=== PATIENT | male | born 1990 | race Caucasian/White ===

== ENCOUNTER 2017-04-01 08:02 | Emergency (ER) | payer BC ==
[2017-04-01 08:19] VITALS: BP 127/68
[2017-04-01] MEDS ORDERED: predniSONE TAB* 20 MG PO ONE (08:44)
--- NOTE | 2017-04-01 08:55 | UC ---
Choco Maravilla Benjamin, scribed for Francisco Sierra MD on 04/01/17 at 0844 . Skin Complaint HPI - HPI Summary HPI Summary: 26yo male who was bite by something 2 nights ago and yesterday started to have red rash spots on his bilateral arms and hands. Pt was also told by his co- workers that his face is swollen. Pt admits his forehead and face are slightly swollen. Pt took Benadryl yesterday. Denies lips or tongue swelling. - History of Current Complaint Chief Complaint: UCSkin Time Seen by Provider: 04/01/17 08:31 Stated Complaint: BUG BITE,FACIAL SWELLING Hx Obtained From: Patient Onset/Duration: Sudden Onset, Lasting Days - 1 day, Still Present Skin Exposure Onset/Duration: Days Ago - 2 days ago Timing: Constant Onset Severity: Mild Current Severity: Mild Pain Intensity: 0 Pain Scale Used: 0-10 Numeric Location: Face - swelling, Ear (Right) - rash spots, Hand (Left) - rash spots Aggravating: Nothing Alleviating: Nothing Associated Signs & Symptoms: Positive: Rash. Negative: Difficulty Breathing, Fever, Throat Tightening - Allergy/Home Medications Allergies/Adverse Reactions: Allergies Allergy/AdvReac Type Severity Reaction Status Date / Time Penicillins Allergy Unknown Unknown Verified 10/29/16 20:49 Reaction Details Home Medications: Home Medications diPHENhydraMINE PO* [Benadryl PO 25 MG TAB*] 50 mg PO Q6H PRN 04/01/17 [History Confirmed 04/01/17] Review of Systems Constitutional: Negative Skin: Rash, Other - swollen face and forehead Eyes: Negative ENT: Negative Respiratory: Negative Cardiovascular: Negative Gastrointestinal: Negative Genitourinary: Negative Motor: Negative Neurovascular: Negative Musculoskeletal: Negative Neurological: Negative Psychological: Negative All Other Systems Reviewed And Are Negative: Yes PMH/Surg Hx/FS Hx/Imm Hx - Surgical History Surgical History: Yes Surgery Procedure, Year, and Place: TONSILLECTOMY, MOLE REMOVED FROM BACK - Family History Known Family History: Positive: Cardiac Disease - Social History Alcohol Use: Weekly Substance Use Type: None Smoking Status (MU): Never Smoked Tobacco Physical Exam Triage Information Reviewed: Yes Appearance: Well-Appearing, No Pain Distress Vital Signs: Initial Vital Signs Temp 97.4 F 04/01/17 08:13 Pulse 63 04/01/17 08:13 Resp 18 04/01/17 08:13 BP 127/68 04/01/17 08:13 Pulse Ox 100 04/01/17 08:13 Vital Signs Reviewed: Yes Eyes: Positive: Conjunctiva Clear ENT Exam: Other - There is very slight facial swelling without erythema to the maxillary skin. Eyelids appear normal without swelling. ENT: Positive: Pharynx normal, Other: - normal tongue, normal throat, no stridor , no drooling.. Negative: Pharyngeal erythema, Trismus, Muffled/hoarse voice Respiratory: Positive: Chest non-tender, Lungs clear, Normal breath sounds, No respiratory distress, No accessory muscle use Cardiovascular: Positive: RRR, No Murmur Abdomen Description: Positive: Nontender Musculoskeletal: Positive: Strength Intact, ROM Intact Neurological Exam: Normal Psychological Exam: Normal Skin: Positive: Other - urticaria on his arms, no obvious bites, and no celulitis Course/Dx - Course Course Of Treatment: 26 yr old male with allergic reaction, hives, possibly to bug bites. He can continue his benadryl every six hours. Adding prednisone. He otherwise appears comfortable, and in no distress. - Differential Diagnoses - Skin Complaint Differential Diagnoses: Allergic Reaction - Diagnoses Provider Diagnoses: urticaria Discharge - Discharge Plan Condition: Good Disposition: HOME Prescriptions: predniSONE TAB* [Deltasone TAB*] 40 mg PO DAILY #6 tab Patient Education Materials: Urticaria (ED) Referrals: No Primary Care Phys,NOPCP [Primary Care Provider] - [facility] [place] [facility] [Outside] The documentation as recorded by the Choco salguero Benjamin accurately reflects the service I personally performed and the decisions made by me, Francisco Sierra MD.
== END 2017-04-01 08:58 | disposition home or self-care (01) ==
LOC: UCEAST 08:02
DX: L50.0 Allergic urticaria (principal); Z88.0 Allergy status to penicillin
CPT/HCPCS: 99212; G0463; J7512

== ENCOUNTER 2017-04-01 21:47 | Emergency (ER) | payer BC ==
[2017-04-01 21:58] VITALS: BP 126/71
[2017-04-01] MEDS ORDERED: predniSONE TAB* 20 MG PO ONE (22:11)
[2017-04-01] MEDS ORDERED: diPHENhydraMINE PO* 50 MG PO ONE (22:12)
[2017-04-01] MEDS ORDERED: Famotidine TAB* 20 MG PO ONE (22:13)
--- NOTE | 2017-04-01 22:25 | UC ---
Skin Complaint HPI - HPI Summary HPI Summary: triage note "ONSET THIS MORNING OF RED AREA LEFT WRIST. PT SEEN IN [facility] THIS MORNING, DX'D WITH UTICARIA, PO PREDNISONE GIVEN 60mgs, RX FOR SAME ALSO GIVEN FOR PT START 04/03/17. PT HAS HAD HX OF ALLERGY TO BEE STINGS IN THE PAST BUT SAYS HE HAS NOT REACTED TO BEE STINGS AN ADULT. PT STATES SITES ON LEFT HAND ARE BEE STINGS FROM 03/29/17. Bite happened 2 nights ago and redness started yesterday. Hemlock note from this AM reviewed. He has not had benadrylo since early this morning. He has developed some more hives on arms and torso. Denies swelling of lips, tongue throat. no scratchy throat, no difficulty swallowing or talking or SOB or wheezing. Here with his Kristin. - History of Current Complaint Chief Complaint: UCSkin Time Seen by Provider: 04/01/17 21:55 Stated Complaint: INSECT BITE/QUINTERO - Allergy/Home Medications Allergies/Adverse Reactions: Allergies Allergy/AdvReac Type Severity Reaction Status Date / Time Penicillins Allergy Unknown Unknown Verified 04/01/17 21:58 Reaction Details Review of Systems Constitutional: Negative Skin: Other - hives, itchy Eyes: Negative ENT: Negative Respiratory: Negative Cardiovascular: Negative Gastrointestinal: Negative Genitourinary: Negative Motor: Negative Neurovascular: Negative Musculoskeletal: Negative Neurological: Negative Psychological: Negative All Other Systems Reviewed And Are Negative: Yes PMH/Surg Hx/FS Hx/Imm Hx Previously Healthy: Yes - Surgical History Surgical History: Yes Surgery Procedure, Year, and Place: TONSILLECTOMY, MOLE REMOVED FROM BACK AND AXILLA. - Family History Known Family History: Positive: Cardiac Disease - Social History Alcohol Use: Weekly Substance Use Type: None Smoking Status (MU): Never Smoked Tobacco Physical Exam Triage Information Reviewed: Yes Appearance: Well-Appearing, No Pain Distress, Well-Nourished Vital Signs: Initial Vital Signs Temp 98.6 F 04/01/17 21:50 Pulse 66 04/01/17 21:50 Resp 16 04/01/17 21:50 BP 126/71 04/01/17 21:50 Pulse Ox 97 04/01/17 21:50 Vital Signs Reviewed: Yes Eye Exam: Normal ENT Exam: Normal ENT: Positive: Hearing grossly normal, Pharynx normal, TMs normal, Other: - lips , tongue and uvula not swollen. no stridor.. Negative: Pharyngeal erythema, Nasal congestion, Muffled/hoarse voice Dental Exam: Normal Neck exam: Normal Neck: Positive: Supple, Nontender, No Lymphadenopathy Respiratory Exam: Normal Respiratory: Positive: Chest non-tender, Lungs clear, Normal breath sounds, No respiratory distress, No accessory muscle use. Negative: Crackles, Rhonchi, Stridor, Wheezing Cardiovascular Exam: Normal Cardiovascular: Positive: RRR, No Murmur, Pulses Normal, Brisk Capillary Refill Abdominal Exam: Normal Abdomen Description: Positive: Nontender, Soft Bowel Sounds: Positive: Present Musculoskeletal Exam: Normal Neurological Exam: Normal Psychological Exam: Normal Skin: Positive: Other - small hives (< quarter sized), mostly dime sized, scatterd, not many on arms, right torso, face, left shoulder, popliteal fossas. blanching. Course/Dx - Course Course Of Treatment: We discusse risks of prednisone including but not limited to anxiety, agitation, insomnia, GI upset, elevated blood pressures and blood sugar readings, adrenal crisis and avascular necrosis of the hip. He is in no acute distress. Dose more prednisone now with famotidine and benadryl. They are both very agreeable with this plan. I advised that they go to ER if sx worsen. - Differential Diagnoses - Skin Complaint Differential Diagnoses: Cellulitis, Contact Dermatitis, Urticaria - Diagnoses Provider Diagnoses: urticaria Discharge - Discharge Plan Condition: Stable Disposition: HOME Prescriptions: Epinephrine [Epipen 2-Dipesh] 0.3 mg IM ONCE PRN #1 inj PRN Reason: allergic reaction Patient Education Materials: Urticaria (ED) Referrals: No Primary Care Phys,NOPCP [Primary Care Provider] - Additional Instructions: A list of primary care doctors has been given to you to follow up with tomorrow. If you develop any symptoms of throat or tongue swelling, scratchy throat, wheezing, shortness of breath, diarrhea or vomiting, you should call 911 and go to ER. A epi-pen prescription has been written for you to use in case of allergic reaction - if you use it, you shuld immediately call [address] while taking benadryl. You have a prednisone taper to continue tomorrow. For the next 14 days you should take OTC cetirizine 10mgs 1 each day and zantac 150mgs every day (do not drink alcohol while you take this). You should get a referral to an mexican food maker hand to clarify your allergies.
== END 2017-04-01 22:40 | disposition home or self-care (01) ==
LOC: UCCORT 21:47
DX: L50.9 Urticaria, unspecified (principal); Z88.0 Allergy status to penicillin
CPT/HCPCS: 99212; A9270-GY; G0463; J7512

== ENCOUNTER 2017-10-11 12:30 | Emergency (ER) | payer BC ==
[2017-10-11 14:14] VITALS: BP 118/60
[2017-10-11] MEDS ORDERED: Tetan/Diph/Pertus SYR(Tdap)* 0.5 ML SYR(BOOSTRIX) use SYR IM ONE (14:58)
--- NOTE | 2017-10-11 15:09 | UC ---
Lower Extremity/Ankle HPI - HPI Summary HPI Summary: Yesterday early in the day pt stepped on an old bright nail with a bare foot indoors, states it went all the way in (3/4 inch) and he pulled back out. Today has soreness and swelling, is able to bear weight. No pus or redness. Last tetanus 2010. - History of Current Complaint Chief Complaint: UCTrauma Stated Complaint: RIGHT FOOT PAIN Time Seen by Provider: 10/11/17 14:57 Hx Obtained From: Patient Onset/Duration: Sudden Onset Severity Initially: Moderate Severity Currently: Mild Aggravating Factor(s): Standing, Ambulation Alleviating Factor(s): Rest Able to Bear Weight: Yes - Allergies/Home Medications Allergies/Adverse Reactions: Allergies Allergy/AdvReac Type Severity Reaction Status Date / Time Penicillins Allergy Unknown Unknown Verified 10/11/17 14:14 Reaction Details PMH/Surg Hx/FS Hx/Imm Hx Previously Healthy: Yes - Surgical History Surgical History: Yes Surgery Procedure, Year, and Place: TONSILLECTOMY, MOLE REMOVED FROM BACK AND AXILLA. - Family History Known Family History: Positive: Cardiac Disease - Social History Occupation: Employed Full-time - construction Alcohol Use: Weekly Substance Use Type: None Smoking Status (MU): Never Smoked Tobacco - Immunization History Most Recent Influenza Vaccination: NOT CURRENT Review of Systems Constitutional: Negative Skin: Other - PW sole of R foot Eyes: Negative ENT: Negative Respiratory: Negative Cardiovascular: Negative Gastrointestinal: Negative Genitourinary: Negative Motor: Negative Neurovascular: Negative Musculoskeletal: Negative Neurological: Negative Psychological: Negative Is Patient Immunocompromised?: No All Other Systems Reviewed And Are Negative: Yes Physical Exam Triage Information Reviewed: Yes Appearance: Well-Appearing, No Pain Distress Vital Signs: Initial Vital Signs Temp 97.9 F 10/11/17 14:11 Pulse 72 10/11/17 14:11 Resp 18 10/11/17 14:11 BP 118/60 10/11/17 14:11 Pulse Ox 100 10/11/17 14:11 Vital Signs Reviewed: Yes Eye Exam: Normal Eyes: Positive: Conjunctiva Clear ENT Exam: Normal ENT: Positive: Normal ENT inspection, Hearing grossly normal, Pharynx normal, TM dull Dental Exam: Normal Neck exam: Normal Respiratory Exam: Normal Respiratory: Positive: Chest non-tender, Lungs clear, Normal breath sounds, No respiratory distress, No accessory muscle use Cardiovascular Exam: Normal Cardiovascular: Positive: RRR, No Murmur Musculoskeletal Exam: Normal Musculoskeletal: Positive: Strength Intact, ROM Intact Neurological Exam: Normal Psychological Exam: Normal Skin Exam: Other - PW on forefoot sole of R foot, no erythema on top or bottom of foot, no drainage, minimal tenderness. Lower Extremity Course/Dx - Differential Dx/Diagnosis Provider Diagnoses: PW with nail into R foot Discharge - Discharge Plan Condition: Stable Disposition: HOME Prescriptions: Ciprofloxacin TAB* [Cipro 500 MG TAB*] 500 mg PO BID #10 tab Patient Education Materials: Puncture Wound (ED) Referrals: No Primary Care Phys,NOPCP [Primary Care Provider] - Additional Instructions: As long as your pain and swelling gradually resolve over the week, no further care should be necessary. If you have significant pain or worsening in the coming days, I recommend you go to the hospital emergency room for further care.
== END 2017-10-11 15:25 | disposition home or self-care (01) ==
LOC: UCCORT 12:30
DX: S91.331A Puncture wound without foreign body, right foot, initial encounter (principal); W45.0XXA Nail entering through skin, initial encounter; Y93.9 Activity, unspecified; Y92.9 Unspecified place or not applicable; Z23 Encounter for immunization; Z88.0 Allergy status to penicillin; Z90.89 Acquired absence of other organs
CPT/HCPCS: 90471; 90715; 99212; G0463

== ENCOUNTER 2018-07-30 20:27 | Emergency (ER) | payer BC ==
[2018-07-30 20:49] VITALS: BP 118/70
--- NOTE | 2018-07-30 20:57 | UC ---
Throat Pain/Nasal Issa HPI - HPI Summary HPI Summary: sore throat for 3-4 days nasal drainage and cough--no fevers, no illness exposures - History of Current Complaint Chief Complaint: UCGeneralIllness Stated Complaint: ST Time Seen by Provider: 07/30/18 20:49 Hx Obtained From: Patient Onset/Duration: Sudden Onset, Lasting Days - 4, Worse Since - day Pain Intensity: 6 Pain Scale Used: 0-10 Numeric Cough: Nonproductive Associated Signs & Symptoms: Positive: Nasal Discharge - Allergies/Home Medications Allergies/Adverse Reactions: Allergies Allergy/AdvReac Type Severity Reaction Status Date / Time Penicillins Allergy Unknown Verified 07/30/18 20:46 Reaction Details Home Medications: Home Medications guaiFENesin [Mucinex] 1,200 mg PO DAILY 07/30/18 [History Confirmed 07/30/18] PMH/Surg Hx/FS Hx/Imm Hx Previously Healthy: Yes - Surgical History Surgical History: Yes Surgery Procedure, Year, and Place: TONSILLECTOMY, MOLE REMOVED FROM BACK AND AXILLA. TUBES IN EARS CHILD - Family History Known Family History: Positive: Cardiac Disease - Social History Occupation: Employed Full-time Lives: With Family Alcohol Use: Occasionally Substance Use Type: None Smoking Status (MU): Never Smoked Tobacco - Immunization History Most Recent Influenza Vaccination: NOT CURRENT Review of Systems Constitutional: Negative Skin: Negative Eyes: Negative ENT: Sore Throat, Nasal Discharge Respiratory: Cough Cardiovascular: Negative Gastrointestinal: Negative Genitourinary: Negative Motor: Negative Neurovascular: Negative Musculoskeletal: Negative Neurological: Negative Psychological: Negative Is Patient Immunocompromised?: No All Other Systems Reviewed And Are Negative: Yes Physical Exam Triage Information Reviewed: Yes Appearance: Well-Appearing, No Pain Distress, Well-Nourished Vital Signs: Initial Vital Signs Temp 97.9 F 07/30/18 20:43 Pulse 65 07/30/18 20:43 Resp 16 07/30/18 20:43 BP 118/70 07/30/18 20:43 Pulse Ox 100 07/30/18 20:43 Vital Signs Reviewed: Yes Eye Exam: Normal Eyes: Positive: Conjunctiva Clear ENT Exam: Normal ENT: Positive: Normal ENT inspection, Hearing grossly normal, Pharynx normal, Nasal congestion, Nasal drainage, TMs normal, Uvula midline. Negative: Tonsillar swelling, Trismus, Muffled voice, Hoarse voice, Dental tenderness, Sinus tenderness Neck exam: Normal Neck: Positive: Supple, Nontender Respiratory Exam: Normal Respiratory: Positive: Chest non-tender, Lungs clear, Normal breath sounds, No respiratory distress, No accessory muscle use Cardiovascular Exam: Normal Cardiovascular: Positive: RRR, No Murmur, Pulses Normal, Brisk Capillary Refill Musculoskeletal Exam: Normal Musculoskeletal: Positive: Strength Intact, ROM Intact, No Edema Neurological Exam: Normal Neurological: Positive: Alert, Muscle Tone Normal Psychological Exam: Normal Skin Exam: Normal Diagnostics - Laboratory Diagnostic Studies Completed/Ordered: RST (-) Throat Pain/Nasal Course/Dx - Course Assessment/Plan: continue Mucines add Zyrtec follow with pcp rpn - Differential Dx/Diagnosis Provider Diagnoses: Post nasal drip, pharyngitis Discharge - Sign-Out/Discharge Documenting (check all that apply): Patient Departure All imaging exams completed and their final reports reviewed: No Studies - Discharge Plan Condition: Stable Disposition: HOME Patient Education Materials: Cetirizine (By mouth), Postnasal Drip (DC) Referrals: LONNY Marie [Medical Doctor] - If Needed - Billing Disposition and Condition Condition: STABLE Disposition: Home - Attestation Statements Provider Attestation: Per institutional requirements, I have reviewed the chart, however, I was not consulted specifically or made aware of this patient by the midlevel provider. I did not personally evaluate, interact with , or disposition this patient.
== END 2018-07-30 21:11 | disposition home or self-care (01) ==
LOC: UCCORT 20:27
DX: R09.82 Postnasal drip (principal); J02.9 Acute pharyngitis, unspecified; Z88.0 Allergy status to penicillin
CPT/HCPCS: 87651; 99211; G0463

== ENCOUNTER 2019-02-19 18:26 | Emergency (ER) | payer BC, OTHER ==
--- NOTE | 2019-02-19 18:53 | UC ---
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 get came off the roof he removed his back pack and he began to experience severe left shoulder pain he is unable to abduct > 45 degrees - History of Current Complaint Stated Complaint: LEFT SHOULDER INJURY - W/C Time Seen by Provider: 02/19/19 18:45 Hx Obtained From: Patient Onset/Duration: Sudden Onset, Lasting Minutes Timing: Constant Severity Initially: Severe Severity Currently: Severe Location Of Pain: Is Diffuse Pain Intensity: 10 Pain Scale Used: 0-10 Numeric Character: Aching, Throbbing, Spasmodic Aggravating Factor(s): Movement Alleviating Factor(s): Nothing Associated Signs And Symptoms: Negative: Swelling, Bruising, Fever, Numbness/ Tingling Related History: Dominant Hand Left Torso: 1 - pain/tender 2 - pain/tender - Allergies/Home Medications Allergies/Adverse Reactions: Allergies Allergy/AdvReac Type Severity Reaction Status Date / Time Penicillins Allergy Unknown Verified 02/19/19 18:44 Reaction Details PMH/Surg Hx/FS Hx/Imm Hx Previously Healthy: Yes - Surgical History Surgical History: Yes Surgery Procedure, Year, and Place: TONSILLECTOMY, MOLE REMOVED FROM BACK AND AXILLA. TUBES IN EARS CHILD - Family History Known Family History: Positive: Cardiac Disease Negative: Hypertension, Diabetes - Social History Alcohol Use: Occasionally Substance Use Type: None Smoking Status (MU): Never Smoked Tobacco - Immunization History Most Recent Influenza Vaccination: NOT CURRENT Review of Systems All Other Systems Reviewed And Are Negative: Yes Constitutional: Positive: Negative Skin: Positive: Negative Eyes: Positive: Negative ENT: Positive: Negative Respiratory: Positive: Negative Cardiovascular: Positive: Negative Gastrointestinal: Positive: Negative Genitourinary: Positive: Negative Motor: Positive: Negative Neurovascular: Positive: Negative Musculoskeletal: Positive: Arthralgia - left shoulder, Myalgia - L shoulder Neurological: Positive: Negative Psychological: Positive: Negative Physical Exam Triage Information Reviewed: Yes Appearance: Well-Appearing, No Pain Distress, Well-Nourished Vital Signs Reviewed: Yes Eyes: Positive: Conjunctiva Clear ENT: Positive: Hearing grossly normal. Negative: Nasal congestion, Nasal drainage, Tonsillar exudate, Muffled voice, Hoarse voice Neck: Positive: Supple, Nontender Respiratory: Positive: Lungs clear, Normal breath sounds, No respiratory distress, No accessory muscle use Cardiovascular: Positive: RRR, No Murmur Musculoskeletal: Positive: ROM Limited @ - left shoulder- markedly limited due to pain, Other: - distal n/v intact Neurological: Positive: Alert Psychological Exam: Normal Skin Exam: Normal Diagnostics - Radiology No standard instances Radiology Interpretation Completed By: ED Physician Summary of Radiographic Findings: no fx or dislocation Shoulder Course/Dx - Course Course Of Treatment: advised of need to see orthopedist to determine extent of injury - Differential Dx/Diagnosis Provider Diagnosis: Injury of left shoulder Discharge - Sign-Out/Discharge Documenting (check all that apply): Patient Departure All imaging exams completed and their final reports reviewed: No - Discharge Plan Condition: Stable Disposition: HOME Patient Education Materials: Shoulder Pain (ED) Forms: *Work Release Referrals: Sae Gotti MD [Medical Doctor] - 1 Day Additional Instructions: take muscle relaxant when you arrive home you can take tylenol hold off on any aleve until after midnight sling - Billing Disposition and Condition Condition: STABLE Disposition: Home
[2019-02-19 18:57] VITALS: BP 111/73
[2019-02-19] MEDS ORDERED: Ketorolac INJ* 30 MG/ML 1 ML VIAL IM ONE (19:11)
[2019-02-19] MEDS ORDERED: Ketorolac INJ* 60 MG/2 ML VIAL IM ONE (19:17)
[2019-02-19] MEDS ORDERED: Cyclobenzaprine TAB* 10 MG PO ONE (19:57)
--- NOTE | 2019-02-20 11:15 | UC ---
- Progress Note Progress Note: Patient Name: PARKER MAIER Medical Record#: [id number] Ordering Physician: Markus Pradhan MD Acct.#: [id number] : 1990 Age: 28 Sex: M [place] [facility] [place]: 02/19/191919 ADM Status: [facility] ER Order Information: SHOULDER LEFT 2+ VWS Accession Number: [id number] CPT: 23861 INDICATION: Left shoulder injury. TECHNIQUE: 4 views of the left shoulder were obtained. FINDINGS: The bones are in normal alignment. No fracture is seen. Joint spaces appear maintained. IMPRESSION: NO EVIDENCE OF FRACTURE. R0 Preliminary Imaging Read R0 <Electronically signed by Deep Ash MD in OV> 02/20/19715 Dictated By: Deep Ash MD Dictated Date/Time: 02/20/19715 Transcribed Date/Time: 02/20/19713 Copy to: CC:Markus Pradhan MD; No Primary Care Phys,NOPCP Imaging - [facility] [address] [place] [address] ph ([phone]) ph ([phone]) ph ([phone]) This report is only to be considered final once signed by the Provider(s) as displayed in the "<Electronically Signed by >" field (s). Absence of a signature indicates the report is in a draft status and still needs to be finalized. In the event this document was created by someone other than the signing Provider, the individual initiating the document will be listed in the "Entered by:" or "Dictated by:" boswell. 1 of 1 Course/Dx - Diagnoses Provider Diagnoses: Injury of left shoulder Discharge - Sign-Out/Discharge Documenting (check all that apply): Post-Discharge Follow Up All imaging exams completed and their final reports reviewed: Yes - Discharge Plan Condition: Stable Disposition: HOME Prescriptions: Cyclobenzaprine (NF) [Cyclobenzaprine 5 MG (NF)] 5 mg PO TID PRN #21 tab PRN Reason: Spasms Patient Education Materials: Shoulder Pain (ED) Forms: *Work Release Referrals: Sae Gotti MD [Medical Doctor] - 1 Day Additional Instructions: take muscle relaxant when you arrive home you can take tylenol hold off on any aleve until after midnight sling - Billing Disposition and Condition Condition: STABLE Disposition: Home
== END 2019-02-19 20:17 | disposition home or self-care (01) ==
LOC: UCCORT 18:26
DX: S49.92XA Unspecified injury of left shoulder and upper arm, initial encounter (principal); Z88.0 Allergy status to penicillin; Y04.0XXA Assault by unarmed brawl or fight, initial encounter; Y92.9 Unspecified place or not applicable
CPT/HCPCS: 96372; 99213; A9270-GY; G0463; J1885